=== PATIENT | female | born 1940 | race Caucasian/White ===

== ENCOUNTER → 2017-07-04 | Outpatient (REF) | payer MEDICARE ==
[2017-07-04 14:52] LABS: BASO % 0.5 % (0.0-1.0); EOS # 0.1 10^3/uL (0.0-0.50); EOS % 1.8 % (0.0-3.0); HEMOGLOBIN 11.2 g/dl (12.0-16.0); IMMATURE GRANULOCYTE % 0.2 % (0-0); LYMPH # 1.9 10^3/uL (1.5-4.5); LYMPH % 29.5 % (24.0-44.0); MEAN CORPUSCULAR HEMOGLOBIN 24.4 pg (27.0-33.0); MEAN CORPUSCULAR HGB CONC 30.3 g/dl (32.0-36.5); MEAN CORPUSCULAR VOLUME 80.6 fl (80.0-96.0); MONO # 0.8 10^3/uL (0.0-0.8); MONO % 11.5 % (0.0-5.0); NEUTROPHILS # 3.7 10^3/uL (1.8-7.7); NEUTROPHILS % 56.5 % (36.0-66.0); PLATELET COUNT, AUTOMATED 209 10^3/uL (150-450); RED BLOOD COUNT 4.59 10^6/uL (4.00-5.40); WHITE BLOOD COUNT 6.5 10^3/uL (4.0-10.0)
[2017-07-04 15:12] LABS: ALBUMIN 3.9 GM/DL (3.2-5.2); ALBUMIN/GLOBULIN RATIO 1.08 (1.00-1.93); ALKALINE PHOSPHATASE 84 U/L (45-117); ALT/SGPT 19 U/L (12-78); ANION GAP 10 MEQ/L (8-16); AST/SGOT 13 U/L (7-37); BILIRUBIN,TOTAL 0.4 MG/DL (0.2-1.0); BLOOD UREA NITROGEN 19 MG/DL (7-18); CALCIUM LEVEL 8.7 MG/DL (8.8-10.2); CARBON DIOXIDE LEVEL 25 MEQ/L (21-32); CHLORIDE LEVEL 107 MEQ/L (98-107); CREATININE FOR GFR 0.93 MG/DL (0.55-1.30); GLOMERULAR FILTRATION RATE > 60.0 (>39); GLUCOSE, FASTING 94 MG/DL (70-100); POTASSIUM SERUM 3.7 MEQ/L (3.5-5.1); RHEUMATOID FACTOR QUANT < 10.0 IU/ML (0-15.0); SODIUM LEVEL 142 MEQ/L (136-145); TOTAL PROTEIN 7.5 GM/DL (6.4-8.2)
[2017-07-04 15:18] LABS: ERYTHROCYTE SEDIMENTATION RATE 18 mm/hr (0-30)
[2017-07-04 15:39] LABS: ESTIMATED AVERAGE GLUCOSE 117 MG/DL (60-110); HEMOGLOBIN A1c 5.7 %
[2017-07-04 15:55] LABS: FOLATE > 24.0 NG/ML; VITAMIN B12 LEVEL 660 PG/ML
[2017-07-05 10:13] LABS: ANTINUCLEAR ANTIBODIES DIRECT Negative (Negative)
[2017-07-07 08:14] LABS: VITAMIN E LEVEL 19.6 mg/L (6.5-21.5)
[2017-07-07 10:19] LABS: VITAMIN B1 LEVEL WHOLE BLOOD 185.8 nmol/L (66.5-200.0); VITAMIN B6,PYRIDOXAL PHOSPHATE 10.1 ug/L (2.0-32.8)
== END ==
LOC: M LABNEURO 13:36
DX: G45.9 Transient cerebral ischemic attack, unspecified (principal); Z13.29 Encounter for screening for other suspected endocrine disorder; Z13.1 Encounter for screening for diabetes mellitus; Z79.899 Other long term (current) drug therapy
CPT/HCPCS: 82746

== ENCOUNTER → 2020-01-14 | Outpatient (REF) | payer MEDICARE | LOC: M LAB REF 17:16 | PROVIDERS: ATTEND Nurse Practitioner Adult Health | DX: D64.9 Anemia, unspecified (principal) ==

== ENCOUNTER 2021-01-03 21:18 | Emergency (ER) | payer MEDICARE ==
[~2021-01-03] VITALS: Ht 167.6 cm; Wt 86.4 kg
[2021-01-03 21:19] VITALS: BP 127/98
[2021-01-03] MEDS ORDERED: TRAV2.5D OU (22:13)
[2021-01-03] MEDS ORDERED: OXYC-517 PO (22:13)
[2021-01-03] MEDS ORDERED: OXYB5TAB10 PO (22:13)
[2021-01-03] MEDS ORDERED: POLY17PO18 PO (22:13)
[2021-01-03] MEDS ORDERED: AMLO1TAB24 PO (22:13)
[2021-01-03] MEDS ORDERED: LOSA50TA88 PO (22:13)
[2021-01-03] MEDS ORDERED: ROSU5TAB5 PO (22:13)
[2021-01-04] MEDS ORDERED: TETRACAINE 0.5% OPHTH SOLN 4ML OU ONE (00:35)
[2021-01-04] MEDS ORDERED: FLUORESCEIN OPHTH 1 MG STRIP OU ONE (00:35)
[2021-01-04] MEDS ORDERED: CIPROFLOXACIN 0.3% OPHTH SOLN 2.5ML OS STA (00:56)
[2021-01-04] MEDS ORDERED: CIPR0.3S6 OS (00:58)
== END 2021-01-04 01:32 | disposition home or self-care (01) ==
LOC: M ED 21:18
DX: S05.52XA Penetrating wound with foreign body of left eyeball, initial encounter (principal); X58.XXXA Exposure to other specified factors, initial encounter; Y92.89 Other specified places as the place of occurrence of the external cause; I10 Essential (primary) hypertension; H40.9 Unspecified glaucoma; Z79.899 Other long term (current) drug therapy

== ENCOUNTER → 2021-03-31 | Outpatient (REF) | payer MEDICARE ==
[~2021-03-31] MED LIST: AMLO1TAB24 PO; CIPR0.3S6 OS; LOSA50TA88 PO; OXYB5TAB10 PO; OXYC-517 PO; POLY17PO18 PO; ROSU5TAB5 PO; TRAV2.5D OU
[2021-03-31 18:14] LABS: INR 1.03; PROTHROMBIN TIME 13.9 SECONDS (12.7-14.5)
[2021-03-31 18:15] LABS: PARTIAL THROMBOPLASTIN TIME 37.3 SECONDS (25.9-37.0)
== END ==
LOC: M LAB REF 17:01
PROVIDERS: ATTEND Nurse Practitioner Adult Health
DX: Z01.818 Encounter for other preprocedural examination (principal); G56.02 Carpal tunnel syndrome, left upper limb; Z79.01 Long term (current) use of anticoagulants

== ENCOUNTER → 2022-02-02 | Outpatient (REF) | payer MEDICARE ==
[~2022-02-02] MED LIST changes: +LOSA50TA28 PO; -LOSA50TA88 PO
== END ==
LOC: M LAB REF 14:59
PROVIDERS: ATTEND Nurse Practitioner Adult Health
DX: N18.32 Chronic kidney disease, stage 3b (principal); R20.8 Other disturbances of skin sensation; N39.0 Urinary tract infection, site not specified

== ENCOUNTER 2022-09-07 11:28 | Emergency (ER) | payer MEDICARE ==
[~2022-09-07] VITALS: Ht 165.1 cm; Wt 87.4 kg
[~2022-09-07 11:28] MED LIST changes: +CIPR0.3S37 OS; -CIPR0.3S6 OS
[2022-09-07 14:24] VITALS: BP 162/82
== END 2022-09-07 14:22 | disposition home or self-care (01) ==
LOC: M ED 11:28
DX: S05.11XA Contusion of eyeball and orbital tissues, right eye, initial encounter (principal); M54.2 Cervicalgia; M25.511 Pain in right shoulder; W01.0XXA Fall on same level from slipping, tripping and stumbling without subsequent striking against object, initial encounter; Y92.009 Unspecified place in unspecified non-institutional (private) residence as the place of occurrence of the external cause; M50.20 Other cervical disc displacement, unspecified cervical region; I10 Essential (primary) hypertension; S14.109D Unspecified injury at unspecified level of cervical spinal cord, subsequent encounter; Z79.899 Other long term (current) drug therapy

== ENCOUNTER → 2022-09-14 | Outpatient (REF) | payer MEDICARE | LOC: M LAB REF 16:33 | PROVIDERS: ATTEND Nurse Practitioner Adult Health | DX: R20.0 Anesthesia of skin (principal) ==

== ENCOUNTER → 2022-09-26 | Outpatient (CLI) | payer MEDICARE | LOC: M WHC 10:54 | PROVIDERS: ATTEND Nurse Practitioner Adult Health | DX: M81.0 Age-related osteoporosis without current pathological fracture (principal) ==